=== PATIENT | female | born 1945 | race Caucasian/White ===

== ENCOUNTER 2017-11-29 09:11 | Emergency (ER) | payer MEDICARE, OTHER ==
[~2017-11-29] VITALS: Ht 157.5 cm; Wt 75.2 kg
[2017-11-29 09:17] VITALS: BP 137/90
[2017-11-29] MEDS ORDERED: AZIT-63 PO (10:27)
[2017-11-29] MEDS ORDERED: TAM75C PO (10:27)
== END 2017-11-29 11:14 | disposition home or self-care (01) ==
LOC: ER 09:12
DX: J20.9 Acute bronchitis, unspecified (principal); M94.0 Chondrocostal junction syndrome [Tietze]; J11.1 Influenza due to unidentified influenza virus with other respiratory manifestations; J44.0 Chronic obstructive pulmonary disease with (acute) lower respiratory infection; Z88.1 Allergy status to other antibiotic agents; Z79.899 Other long term (current) drug therapy
CPT/HCPCS: 87502; 87503; 99284